=== PATIENT | male | born 1985 | race Caucasian/White ===

== ENCOUNTER 2020-07-14 21:20 | Day surgery (SDC) | payer BC ==
--- NOTE | 2020-07-14 21:45 | ED Physician Documentation ---
PD HPI ABD PAIN - Stated complaint Stated Complaint: RT FLANK PX - Chief complaint Chief Complaint: Back Pain - History obtained from History obtained from: Patient - History of Present Illness Timing - onset: How many hours ago (3-4), Today Timing - duration: Hours Timing - details: Gradual onset Pain level now: 6 Quality: Pain Location: Other (right flank and right LQ) Radiation: Right flank Improved by: Laying still Worsened by: Breathing, Palpation Associated symptoms: Loss of appetite. No: Fever, Nausea, Vomiting Similar symptoms before: Has not had sx before Recently seen: Not recently seen Review of Systems Constitutional: reports: Reviewed and negative Eyes: reports: Reviewed and negative Ears: reports: Reviewed and negative Nose: reports: Reviewed and negative Throat: reports: Reviewed and negative Cardiac: reports: Reviewed and negative Respiratory: reports: Reviewed and negative GI: reports: Abdominal Pain. denies: Abdominal Swelling, Nausea, Vomiting, Constipation, Diarrhea : denies: Dysuria, Frequency, Hematuria Skin: reports: Reviewed and negative PD PAST MEDICAL HISTORY - Past Medical History Past Medical History: No - Past Surgical History Past Surgical History: No - Allergies Allergies/Adverse Reactions: Allergies Allergy/AdvReac Type Severity Reaction Status Date / Time No Known Drug Allergies Allergy Verified 07/14/20 21:32 - Social History Does the pt drink ETOH?: No PD ED PE NORMAL - Vitals Vital signs reviewed: Yes - General General: Alert and oriented X 3, No acute distress, Well developed/nourished - Neck Neck: Supple, no meningeal sign - Cardiac Cardiac: RRR, No murmur - Respiratory Respiratory: No respiratory distress, Clear bilaterally - Abdomen Abdomen: Soft, Non distended - Back Back: No CVA TTP - Derm Derm: Normal color, Warm and dry, No rash PD ED PE EXPANDED - Abdomen Abdomen: Tender to palpation, Guarding, RLQ. No: Rebound Results - Vitals Vitals: Vital Signs - 24 hr 07/14/20 07/15/20 07/15/20 21:30 00:26 00:50 Temperature 37.0 C Heart Rate 86 68 129 H Heart Rate [ Brachial] Respiratory 16 15 38 H Rate Blood Pressure 135/85 H 131/74 H Blood Pressure [Left Brachial artery] O2 Saturation 95 99 98 07/15/20 07/15/20 07/15/20 01:08 01:25 05:00 Temperature 36.7 C 36.4 C L Heart Rate 71 Heart Rate [ 63 71 Brachial] Respiratory 16 18 18 Rate Blood Pressure 122/76 Blood Pressure 135/73 H 130/99 H [Left Brachial artery] O2 Saturation 98 100 98 07/15/20 07/15/20 07/15/20 07:30 07:35 08:13 Temperature 36.5 C 36.3 C L 36.3 C L Heart Rate 76 71 Heart Rate [ 67 Brachial] Respiratory 18 20 20 Rate Blood Pressure 122/76 Blood Pressure 119/66 [Left Brachial artery] O2 Saturation 97 99 99 07/15/20 07/15/20 07/15/20 09:37 09:42 09:47 Temperature 36.3 C L 36.3 C L 36.4 C L Heart Rate 80 84 78 Heart Rate [ Brachial] Respiratory 17 12 17 Rate Blood Pressure 117/92 H 132/88 H 139/83 H Blood Pressure [Left Brachial artery] O2 Saturation 97 99 98 07/15/20 07/15/20 07/15/20 09:52 10:14 10:20 Temperature 36.4 C L 36.1 C L 36.1 C L Heart Rate 76 84 77 Heart Rate [ Brachial] Respiratory 18 20 11 L Rate Blood Pressure 137/87 H 147/82 H 127/89 H Blood Pressure [Left Brachial artery] O2 Saturation 98 97 95 07/15/20 07/15/20 07/15/20 10:35 10:46 11:04 Temperature 36.2 C L 36.5 C 36.4 C L Heart Rate 79 76 82 Heart Rate [ Brachial] Respiratory 13 11 L 10 L Rate Blood Pressure 137/78 H 149/82 H 136/96 H Blood Pressure [Left Brachial artery] O2 Saturation 97 96 99 07/15/20 11:09 Temperature 36.4 C L Heart Rate 75 Heart Rate [ Brachial] Respiratory 12 Rate Blood Pressure 120/87 H Blood Pressure [Left Brachial artery] O2 Saturation 97 Oxygen O2 Source Room air - Labs Labs: Laboratory Tests 07/14/20 07/14/20 07/14/20 21:30 22:07 22:07 WBC 12.4 H RBC 5.49 Hgb 14.5 Hct 43.0 MCV 78.3 L MCH 26.4 L MCHC 33.7 RDW 12.5 Plt Count 302 MPV 10.2 Neut # (Auto) 7.1 H Lymph # (Auto) 4.1 H [place] # (Auto) 0.8 Eos # (Auto) 0.2 Baso # (Auto) 0.1 Absolute Nucleated RBC 0.00 Nucleated RBC % 0.0 Sodium 139 Potassium 3.8 Chloride 101 Carbon Dioxide 29 Anion Gap 9.0 BUN 16 Creatinine 0.9 Estimated GFR (MDRD) 95 Glucose 105 H Calcium 9.5 Total Bilirubin 0.7 AST 34 ALT 70 H Alkaline Phosphatase 51 Total Protein 8.0 Albumin 4.6 Globulin 3.4 Albumin/Globulin Ratio 1.4 Lipase 56 H Urine Color YELLOW Urine Clarity CLEAR Urine pH 6.5 Ur Specific [place] 1.025 Urine Protein NEGATIVE Urine Glucose (UA) NEGATIVE Urine Ketones NEGATIVE Urine Occult Blood NEGATIVE Urine Nitrite NEGATIVE Urine Bilirubin NEGATIVE Urine Urobilinogen 1 (NORMAL) Ur Leukocyte Esterase NEGATIVE Ur Microscopic Review NOT INDICATED Urine Culture Comments NOT INDICATED Nasal Adenovirus (PCR) Nasal B. parapertussis DNA (PCR) Nasal Coronavir 229E PCR Nasal Coronavir HKU1 PCR Nasal Coronavir NL63 PCR Nasal Coronavir OC43 PCR Nasal Enterovir/Rhinovir PCR Nasal Influenza B PCR Nasal Influenza A PCR Nasal Parainfluen 1 PCR Nasal Parainfluen 2 PCR Nasal Parainfluen 3 PCR Nasal Parainfluen 4 PCR Nasal RSV (PCR) Nasal B.pertussis DNA PCR Nasal C.pneumoniae (PCR) Robin Human Metapneumo PCR Nasal M.pneumoniae (PCR) Nasal SARS-CoV-2 (PCR) 07/15/20 07/15/20 01:00 07:30 WBC RBC Hgb Hct MCV MCH MCHC RDW Plt Count MPV Neut # (Auto) Lymph # (Auto) [place] # (Auto) Eos # (Auto) Baso # (Auto) Absolute Nucleated RBC Nucleated RBC % Sodium 136 Potassium 3.7 Chloride 103 Carbon Dioxide 27 Anion Gap 6.0 BUN 15 Creatinine 0.9 Estimated GFR (MDRD) 95 Glucose 102 H Calcium 8.9 Total Bilirubin 0.7 AST 31 ALT 62 H Alkaline Phosphatase 47 Total Protein 7.8 Albumin 4.3 Globulin 3.5 Albumin/Globulin Ratio 1.2 Lipase Urine Color Urine Clarity Urine pH Ur Specific [place] Urine Protein Urine Glucose (UA) Urine Ketones Urine Occult Blood Urine Nitrite Urine Bilirubin Urine Urobilinogen Ur Leukocyte Esterase Ur Microscopic Review Urine Culture Comments Nasal Adenovirus (PCR) NOT DETECTED Nasal B. parapertussis DNA (PCR) NOT DETECTED Nasal Coronavir 229E PCR NOT DETECTED Nasal Coronavir HKU1 PCR NOT DETECTED Nasal Coronavir NL63 PCR NOT DETECTED Nasal Coronavir OC43 PCR NOT DETECTED Nasal Enterovir/Rhinovir PCR NOT DETECTED Nasal Influenza B PCR NOT DETECTED Nasal Influenza A PCR NOT DETECTED Nasal Parainfluen 1 PCR NOT DETECTED Nasal Parainfluen 2 PCR NOT DETECTED Nasal Parainfluen 3 PCR NOT DETECTED Nasal Parainfluen 4 PCR NOT DETECTED Nasal RSV (PCR) NOT DETECTED Nasal B.pertussis DNA PCR NOT DETECTED Nasal C.pneumoniae (PCR) NOT DETECTED Robin Human Metapneumo PCR NOT DETECTED Nasal M.pneumoniae (PCR) NOT DETECTED Nasal SARS-CoV-2 (PCR) NOT DETECTED - Rads (name of study) CT A/P with IV contrast Radiology: Prelim report reviewed, See rad report PD MEDICAL DECISION MAKING - ED course Complexity details: reviewed results, re-evaluated patient, considered differential, d/w patient ED course: appendicitis on CT with H+P s/o same. D/w Dr. Cramer, accepts admit to surgical service for appendectomy in AM. Zosyn given IV as requested by Dr. Cramer. - Consults Consults: Consulted (name) (COILN), Discussed case with (Colin), Request hr consultant admit patient Departure - Departure Disposition: ED Transfer to [facility] Clinical Impression: Appendicitis Qualifiers: Appendicitis type: acute appendicitis Acute appendicitis type: with localized peritonitis Appendicitis gangrene presence: without gangrene Appendicitis perforation presence: without perforation Appendicitis abscess presence: without abscess Qualified Code(s): K35.30 - Acute appendicitis with localized peritonitis, without perforation or gangrene Condition: Stable Discharge Date/Time: 07/15/20 01:25
[2020-07-14 21:50] LABS: BILIRUBIN,URINE NEGATIVE (NEGATIVE); GLUCOSE, URINE (UA) NEGATIVE (NEGATIVE); KETONES,URINE (UA) NEGATIVE (NEGATIVE); LEUKOCYTE ESTERASE, URINE NEGATIVE (NEGATIVE); NITRITE,URINE NEGATIVE (NEGATIVE); OCCULT BLOOD,URINE NEGATIVE (NEGATIVE); PH,URINE 6.5 PH (5.0-7.5); PROTEIN,URINE NEGATIVE (NEGATIVE); UROBILINOGEN,URINE 1 (NORMAL) E.U./dL (NORMAL)
[2020-07-14 21:51] LABS: CLARITY,URINE CLEAR (CLEAR)
[2020-07-14] MEDS ORDERED: IOVERSOL 320 100 ML VIAL IVP ONE ×2 (22:04→22:42)
[2020-07-14 22:13] LABS: BASOPHILS # (AUTO) 0.1 10^3/uL (0.0-0.1); BASOPHILS % (AUTO) 0.5 %; EOSINOPHILS # (AUTO) 0.2 10^3/uL (0.0-0.7); EOSINOPHILS % (AUTO) 1.3 %; HGB - HEMOGLOBIN 14.5 g/dL (14.0-18.0); LYMPHOCYTES # (AUTO) 4.1 10^3/uL (1.5-3.5); LYMPHOCYTES % (AUTO) 32.9 %; MEAN CORPUSCULAR HEMOGLOBIN 26.4 pg (27.0-31.0); MEAN CORPUSCULAR HGB CONC 33.7 g/dL (32.0-36.0); MEAN CORPUSCULAR VOLUME 78.3 fL (80.0-94.0); MEAN PLATELET VOLUME 10.2 fL (7.4-11.4); MONOCYTES # (AUTO) 0.8 10^3/uL (0.0-1.0); MONOCYTES % (AUTO) 6.7 %; NEUTROPHILS # (AUTO) 7.1 10^3/uL (1.5-6.6); NEUTROPHILS % (AUTO) 57.5 %; PLT - PLATELET COUNT 302 10^3/uL (130-450); RED BLOOD COUNT 5.49 10^6/uL (4.70-6.10); RED CELL DISTRIBUTION WIDTH 12.5 % (12.0-15.0); WHITE BLOOD COUNT 12.4 x10^3/uL (4.8-10.8)
[2020-07-14 22:25] LABS: ALBUMIN 4.6 g/dL (3.2-5.5); ALBUMIN/GLOBULIN RATIO 1.4 (1.0-2.2); BILIRUBIN,TOTAL 0.7 mg/dL (0.2-1.0); CALCIUM 9.5 mg/dL (8.5-10.3); CREATININE 0.9 mg/dL (0.6-1.2); POTASSIUM 3.8 mmol/L (3.5-5.0)
[2020-07-14] MEDS ORDERED: SODIUM CHLORIDE 0.9% 1,000 ML IV STA (23:59)
[2020-07-14] MEDS ORDERED: PIPERACILLIN/TAZOBACTAM 3.375 GM in SODIUM CHLORIDE 0.9% MINIBAG 100 ML IV STA (23:59)
[2020-07-15] MEDS ORDERED: ONDANSETRON 4 MG/2 ML VIAL IVP PRN ×2 (00:51→08:24)
[2020-07-15] MEDS ORDERED: ACETAMINOPHEN 1,000 MG/100 ML 100 ML IV SCH ×2 (01:00→08:00)
[2020-07-15] MEDS: D5NS W/20 MEQ KCL 1,000 ML IV SCH ×2 (01:59→10:24)
[2020-07-15] MEDS: HEPARIN 5,000 UNIT/ML VIAL SUBQ SCH ×2 (01:59→07:41)
[2020-07-15 02:07] LABS: B. PARAPERTUSSIS- RESP PCR PAN NOT DETECTED; B. PERTUSSIS- RESP PCR PANEL NOT DETECTED; C. PNEUMONIAE- RESP PCR PANEL NOT DETECTED; CORONAVIRUS 229E-RESP PCR NOT DETECTED; CORONAVIRUS HKU1-RESP PCR NOT DETECTED; CORONAVIRUS NL63-RESP PCR NOT DETECTED; CORONAVIRUS OC43-RESP PCR NOT DETECTED; HUMAN METAPNEUMOVIRUS NOT DETECTED; INFLUENZA A- RESP PCR PANEL NOT DETECTED; INFLUENZA B - RESP PCR PANEL NOT DETECTED; M. PNEUMONIAE- RESP PCR PANEL NOT DETECTED; PARAINFLUENZA VIRUS 1 NOT DETECTED; PARAINFLUENZA VIRUS 2 NOT DETECTED; PARAINFLUENZA VIRUS 3 NOT DETECTED; PARAINFLUENZA VIRUS 4 NOT DETECTED; RHINOVIRUS/ENTEROVIRUS NOT DETECTED; RSV- RESP PCR PANEL NOT DETECTED; SARS-CoV-2 -RESP PCR PANEL NOT DETECTED
[2020-07-15] MEDS ORDERED: methocarbamoL 500 MG TABLET PO SCH (06:00)
[2020-07-15] MEDS ORDERED: METOCLOPRAMIDE 10 MG/2 ML VIAL IVP SCH (06:00)
[2020-07-15] MEDS ORDERED: PIPERACILLIN/TAZOBACTAM 3.375 GM in SODIUM CHLORIDE 0.9% MINIBAG 100 ML IV SCH (06:00)
[2020-07-15] MEDS ORDERED: LIDOCAINE-MPF 2% 5 ML VIAL ONE (07:00)
[2020-07-15] MEDS ORDERED: fentaNYL 100 MCG/2 ML VIAL ONE (07:00)
[2020-07-15] MEDS ORDERED: PROPOFOL 200 MG/20 ML VIAL IVP ONE ×2 (07:00→09:20)
[2020-07-15] MEDS ORDERED: MIDAZOLAM 2 MG/2 ML VIAL ONE (07:00)
[2020-07-15] MEDS ORDERED: DEXAMETHASONE 4 MG/ML VIAL ONE (07:01)
[2020-07-15] MEDS ORDERED: ONDANSETRON 4 MG/2 ML VIAL ONE (07:01)
[2020-07-15] MEDS ORDERED: ROCURONIUM 50 MG/5 ML VIAL ONE (07:01)
[2020-07-15] MEDS ORDERED: LIDOCAINE 1% 50 ML MDV ONE (07:07)
[2020-07-15] MEDS ORDERED: BUPIVACAINE 0.5%-EPI 1:200000 PF 30 ML VIAL ONE (07:07)
[2020-07-15] MEDS ORDERED: SEVOFLURANE 250 ML LIQUID INH ONE (07:07)
[2020-07-15 08:05] LABS: ALBUMIN 4.3 g/dL (3.2-5.5); ALBUMIN/GLOBULIN RATIO 1.2 (1.0-2.2); BILIRUBIN,TOTAL 0.7 mg/dL (0.2-1.0); CALCIUM 8.9 mg/dL (8.5-10.3); CREATININE 0.9 mg/dL (0.6-1.2); POTASSIUM 3.7 mmol/L (3.5-5.0); TOTAL PROTEIN 7.8 g/dL (6.7-8.2)
--- NOTE | 2020-07-15 08:10 | SURGERY HX AND PHYSICAL(T) ---
Surgical History & Physical - Chief Complaint/HPI Chief Complaint: Abdominal pain/appendicitis History of Present Illness: 34-year-old male presenting with 1 day of abdominal pain. Work-up included CT imaging as well as lab evaluation. Patient notable for a leukocytosis, on CT imaging positive appendicitis with inflammatory changes. Patient with no significant past medical history. Admitted in anticipation of operative intervention after resuscitation and IV antibiotics; opted to proceed to the operating room urgently for laparoscopic intervention. - PMH/PSH/Social Hx Neurological History: None Cardiovascular: None Respiratory: Other Skin: None Endocrine/Autoimmune: None Urinary: None Musculoskeletal: None Blood Disorders: None PMH Other: SEASONAL ALLERGIES Smoking Status: Never smoker Does the pt drink ETOH?: Yes Frequency: Occasional Does the pt have substance abuse?: No - Home Meds and Allergies Allergies/Adverse Reactions: Allergies Allergy/AdvReac Type Severity Reaction Status Date / Time No Known Drug Allergies Allergy Verified 07/14/20 21:32 - Review of Systems Constitutional: Fatigue, Fever Gastrointestinal: Abdominal pain - Vital Signs Heart Rate: 71 Blood Pressure: 122/76 Temperature: 36.3 C Respiratory Rate: 20 O2 Saturation: 99 Weight (kg): 104.5 kg Height: 1.75 m - Physical Exam Comments/Other: General Appearance: positive: No acute distress Eyes Bilateral: positive: Normal inspection ENT: positive: ENT inspection nml Neck: positive: Nml inspection Respiratory: positive: Chest non-tender, No respiratory distress, Breath sounds nml. negative: Wheezes, Rales, Rhonchi Cardiovascular: positive: Regular rate & rhythm Abdomen: positive: No distention, Other. negative: Guarding, Rebound; Positive right lower quadrant tenderness to palpation Extremities: positive: Non-tender, Full ROM, Nml appearance Neurologic/Psychiatric: positive: Oriented x3, CN's nml (2-12) - Patient Review Patient Review: Problems were reviewed with the patient during this visit. Medications were reviewed with the patient during this visit. Allergies were reviewed this patient during this visit. Pertinent Tests Reviewed: All pertitent test for this patient were reviewed. - Assessment & Plan Assessment and Plan: 34-year-old male presenting with acute appendicitis with no comorbid states. Leukocytosis to approximately 12, CT with uncomplicated nonperforated appendicitis. Plan going forward is as follows: 1. Bowel rest, IV fluid resuscitation, IV antibiotics. 2. Preoperative chest x-ray, preoperative EKG, labs evaluated. 3. Planned diagnostic laparoscopy, laparoscopic appendectomy, other indicated procedures. Patient counseled of the risk associated with operative intervention including but not limited to conversion to open procedure, injury to local structures, and anesthesia risks of heart attack, stroke, . 4. Postoperative care under observation status with continued IV antibiotics.
--- NOTE | 2020-07-15 08:14 | CT Report ---
PROCEDURE: Abdomen/Pelvis W INDICATIONS: RLQ abd. pain CONTRAST: IV CONTRAST: Optiray 320 ml: 100 PO CONTRAST: *NO PO CONTRAST TECHNIQUE: After the administration of intravenous contrast, 5 mm thick sections acquired from the diaphragms to the symphysis. 5 mm thick coronal and sagittal reformats were acquired. For radiation dose reducti on, the following was used: automated exposure control, adjustment of mA and/or kV according to rima ent size. COMPARISON: CXR 07/15/2020. FINDINGS: Image quality: Excellent. ABDOMEN: Lung bases: Heart size is normal. Right lower lobe groundglass pulmonary nodule measuring 0.7 cm, (4/ 10). Solid organs: Liver is normal in size. There is diffuse low-attenuation suggesting hepatic steatosis . No focal lesion. Gallbladder is unremarkable. Biliary system is non dilated. Pancreas enhances no rmally. No splenomegaly. No adrenal nodules. Kidneys demonstrate normal size, without hydronephrosis . Right kidney superior pole exophytic cyst measuring 1.1 cm, (6/46), 36 Hounsfield units. Peritoneum and bowel: The appendix is mildly dilated measuring 0.9 cm in diameter, (6/35). There is m ild periappendiceal stranding. No periappendiceal fluid collection. No appendicolith is seen. No small bowel obstruction. No significant diverticulosis. No pneumoperitoneum. No ascites. Nodes and vessels: No retroperitoneal or mesenteric adenopathy by size criteria. Small lymph nodes i n the right lower quadrant. Aorta and inferior vena cava are normal in size. Miscellaneous: Tiny fat-containing periumbilical hernia. PELVIS: Genitourinary: Bladder is within normal limits. No free fluid. Miscellaneous: No definite inguinal hernias or adenopathy. Bones: No suspicious bony lesions. Multilevel DDD, early onset. No vertebral body compression fract ures. IMPRESSION: 1. Acute appendicitis, mild severity. No abscess or pneumoperitoneum. 2. Suspect hepatic steatosis. 3. Incidental right kidney mildly complex cyst measuring 1.1 cm. -This can be further characterization with ultrasound or MRI or CT. 4. Incidental right lower lobe groundglass pulmonary nodule measuring 0.7 cm. -This can be further followed with low-dose CT chest in 6-12 months. Minor discrepancy with the preliminary interpretation. Small pulmonary nodule is identified. Discrepancy conveyed to Nikolas the patient's nurse at time of dictation. Reviewed by: Camron Brand MD on 07/15/2020 8:12 AM PDT Approved by: Camron Brand MD on 07/15/2020 8:12 AM PDT Station ID: [id number]
[2020-07-15] MEDS ORDERED: HYDROmorphone 0.5 MG/0.5 ML SYRINGE IVP PRN ×2 (08:24→09:37)
[2020-07-15] MEDS ORDERED: fentaNYL 100 MCG/2 ML VIAL IVP PRN (08:24)
[2020-07-15] MEDS ORDERED: ePHEDrine 50 MG/ML VIAL IVP PRN (08:24)
[2020-07-15] MEDS ORDERED: METOCLOPRAMIDE 10 MG/2 ML VIAL IVP PRN (08:24)
[2020-07-15] MEDS ORDERED: MORPHINE 2 MG/ML CARPUJECT IVP PRN (08:24)
[2020-07-15] MEDS ORDERED: NALOXONE 0.4 MG/ML VIAL IVP PRN (08:24)
[2020-07-15] MEDS ORDERED: ATROPINE ABBOJECT 1 MG/10 ML SYRINGE IVP PRN (08:24)
--- NOTE | 2020-07-15 08:24 | ANESTHESIA ---
Pre-Anesthesia VS, & Labs - Diagnosis appendicitis - Procedure laparoscopic appendectomy Vital Signs: Temp Pulse Resp BP Pulse Ox 36.3 C L 71 20 122/76 99 07/15/20 08:13 07/15/20 08:13 07/15/20 08:13 07/15/20 08:13 07/15/20 08:13 Height: 5 ft 9 in Weight (kg): 104.5 kg Body Mass Index: 34.0 BMI Classification: Obese - NPO >8 hours - Lab Results Current Lab Results: Laboratory Tests 07/15/20 07:30: Sodium 136, Potassium 3.7, Chloride 103, Carbon Dioxide 27, Anion Gap 6.0, BUN 15, Creatinine 0.9, Estimated GFR (MDRD) 95, Glucose 102 H, Calcium 8.9, Total Bilirubin 0.7, AST 31, ALT 62 H, Alkaline Phosphatase 47, Total Protein 7.8, Albumin 4.3, Globulin 3.5, Albumin/Globulin Ratio 1.2 07/14/20 22:07: Sodium 139, Potassium 3.8, Chloride 101, Carbon Dioxide 29, Anion Gap 9.0, BUN 16, Creatinine 0.9, Estimated GFR (MDRD) 95, Glucose 105 H, Calcium 9.5, Total Bilirubin 0.7, AST 34, ALT 70 H, Alkaline Phosphatase 51, Total Protein 8.0, Albumin 4.6, Globulin 3.4, Albumin/Globulin Ratio 1.4, Lipase 56 H 07/14/20 22:07: WBC 12.4 H, RBC 5.49, Hgb 14.5, Hct 43.0, MCV 78.3 L, MCH 26.4 L , MCHC 33.7, RDW 12.5, Plt Count 302, MPV 10.2, Neut # (Auto) 7.1 H, Lymph # (Auto) 4.1 H, [place] # (Auto) 0.8, Eos # (Auto) 0.2, Baso # (Auto) 0.1, Absolute Nucleated RBC 0.00, Nucleated RBC % 0.0 Fish Bones: 07/14/20 22:07 07/15/20 07:30 Home Medications and Allergies Active Medications Heparin Sodium (Porcine) (Heparin 5,000 Unit/Ml Vial) 5,000 unit SUBQ BID SOFIA Last Admin: 07/15/20 07:41 Dose: Not Given Documented by: Potassium Chloride/Dextrose/Sod Cl (D5ns W/20 Meq Kcl) 1,000 mls @ 125 mls/hr IV .Q8H [facility] Last Admin: 07/15/20 01:59 Dose: 125 mls/hr Documented by: Piperacillin Sod/Tazobactam (Sod 3.375 gm/ Sodium Chloride) 100 mls @ 200 mls/hr IV Q6H [facility] Last Infusion: 07/15/20 05:55 Dose: Infused Documented by: Acetaminophen (Ofirmev) 100 mls @ 400 mls/hr IV Q6H [facility] Methocarbamol (Methocarbamol 500 Mg Tablet) 500 mg PO Q6HR [facility] Last Admin: 07/15/20 05:24 Dose: 500 mg Documented by: Metoclopramide HCl (Metoclopramide 10 Mg/2 Ml Vial) 10 mg IVP Q6HR [facility] Last Admin: 07/15/20 05:24 Dose: 10 mg Documented by: Ondansetron HCl (Ondansetron 4 Mg/2 Ml Vial) 4 mg IVP Q6HR PRN PRN Reason: Nausea / Vomiting Sodium Chloride (Sodium Chloride Flush 0.9% 10 Ml Syringe) 10 ml IVP 0100,0900,1700 [facility] Last Admin: 07/15/20 05:33 Dose: 10 ml Documented by: Allergies/Adverse Reactions: Allergies Allergy/AdvReac Type Severity Reaction Status Date / Time No Known Drug Allergies Allergy Verified 07/14/20 21:32 Anes History & Medical History - Anesthetic History Anesthesia Complications: reports: No previous complications - Medical History Cardiovascular: reports: None Pulmonary: reports: Other Gastrointestinal: reports: None Urinary: reports: None Neuro: reports: None Musculoskeletal: reports: None Endocrine/Autoimmune: reports: None Blood Disorders: reports: None Skin: reports: None Smoking Status: Never smoker Other Past Medical History: SEASONAL ALLERGIES Exam General: Alert Dental: WNL Neck Mobility: Normal Mallampati classification: III Thyromental Distance: greater than 6 cm Respiratory: Lungs clear Cardiovascular: Regular rate Plan Anesthesia Type: General Consent for Procedure(s) Verified and Reviewed: Yes Code Status: Attempt Resuscitation ASA classification: 2-Mild systemic disease Is this case an emergency?: Yes
[2020-07-15] MEDS ORDERED: ACETAMINOPHEN 1,000 MG/100 ML 100 ML IV ONE (08:35)
--- NOTE | 2020-07-15 08:46 | XRAY Report ---
PROCEDURE: Chest 1 View X-Ray INDICATIONS: Preoperative clearance TECHNIQUE: One view of the chest was acquired. COMPARISON: None FINDINGS: Surgical changes and devices: None. Lungs and pleura: No pleural effusions or pneumothorax. Lungs are clear. Mediastinum: Mediastinal contours appear normal. Heart size is normal. Bones and chest wall: No suspicious bony lesions. Overlying soft tissues appear unremarkable. IMPRESSION: No acute cardiopulmonary process demonstrated radiographically. Reviewed by: Jose Vick MD on 07/15/2020 8:44 AM PDT Approved by: Jose Vick MD on 07/15/2020 8:44 AM PDT Station ID: [id number]
[2020-07-15] MEDS ORDERED: SODIUM CHLORIDE FLUSH 0.9% 10 ML SYRINGE IVP SCH (09:00)
[2020-07-15] MEDS ORDERED: LACTATED RINGERS 1,000 ML IV SCH (09:00)
[2020-07-15] MEDS ORDERED: LIDOCAINE 1% 50 ML MDV SUBQ ONE (09:07)
[2020-07-15] MEDS ORDERED: BUPIVACAINE 0.5%-EPI 1:200000 PF 30 ML VIAL SUBQ ONE (09:08)
[2020-07-15] MEDS ORDERED: SUGAMMADEX 200 MG/2 ML VIAL IVP ONE (09:09)
[2020-07-15] MEDS ORDERED: KETOROLAC 30 MG/ML VIAL ONE (09:28)
[2020-07-15] MEDS ORDERED: oxyCODONE 5 MG TABLET PO PRN (09:37)
--- NOTE | 2020-07-15 09:43 | OPERATIVE REPORT ---
Operative Report - General Procedure Date: 07/15/20 Planned Procedure: 1. Diagnostic laparoscopy 2. Laparoscopic appendectomy 3. Other indicated procedures Pre-Op Diagnosis: Appendicitis; abdominal pain; umbilical hernia Procedure Performed: 1. Diagnostic laparoscopy 2. Laparoscopic adhesiolysis, extensive 3. Appendectomy with partial cecectomy 4. Abdominal washout 5. Umbilical hernia repair, primary Post Op Diagnosis: same; nonperforated, nonsuppurative appendicitis; adhesions - Procedure Note Primary Surgeon: Bela Secondary Surgeon: Soco Anesthesia Provider: Juan Anesthesia Technique: General ET tube, Local Pathology: Appendix with portion of cecum Estimated Blood Loss (mL): 20 Indications: See EMR Findings: 1. Nonperforated nonsuppurative appendicitis in the right upper quadrant 2. Dense adhesions to the right lower quadrant 3. Umbilical hernia closed after desufflation and specimen removal Complications: None - Other Other Information/Narrative: OPERATIVE PROCEDURE: The patient was taken to the operating room, placed supine on the operating table. The patent was already obtained tor informed consent which was documented in the patients permanent medical record The patient was induced for general endotracheal anesthesia. The patient was positioned, off loaded and padded at all pressure points. The patient was placed for a Amos catheter and tucked for the left arm. The patient was prepped and draped in the usual sterile fashion. The patient was called for a time out which was agreed to all in the room. Open Manriquez technique was performed through umbilicus and umbilical trocar was placed. This was achieved with a circumlinear louie-umbilical incision. This is taken through the subcutaneous fat, the umbilical stalk was dissected off and obvious hernia defect was appreciated. This was done without any injury to the umbilical skin. That ho-chunk defect was enlarged and accommodated Manriquez trocar without any complication. Insufflation was commenced which the patient tolerated to 15 mmHg well with no complication. Additional trocars were placed suprapubic and left lower quadrant under direct laparoscopic vision. At this time the patient was placed in Trendelenburg position with right side up and we proceeded to isolate the cecum which was densely adhered to the sidewall. Dense right lower quadrant adhesions of the terminal ileum starting from the pelvic inlet all the way through to the right upper quadrant where the cecum was localized with a dilated appendix. In order to access the cecum and resect the appendix safely these adhesions need to be addressed. Laparoscopic LigaSure was used in order to achieve this. Laparoscopic electrocautery was also employed. The appendix was continued to be mobilized and thereafter we achieved mobilization medially taking care to note the location of the ureter which was protected and identified throughout the entirety at this case especially given the extent of the patients inflammatory changes. Ultimately the cecum was isolated free, and the appendix was thereafter completely mobilized off the abdominal and pelvic sidewall. At this time there were dense adhesions noted of the appendix to the ascending colon and cecum and this required careful dissection as well, both blunt and also using the suction audio/video technician and laparoscopic electrocautery. At this time a [place]-tipped LigaSure was used to dissect the cecal-appendiceal junction and thereafter using a ENDOGIA linear cutting stapler, the appendix was divided at the base to include portion at the cecum. The ileocecal valve was identified and protected throughout with no involvement. At this time, we continued to mobilize the appendix off the ascending colon and caecum making sure there was no inadvertent injury to the ascending colon and the cecum which was again densely adhered to the appendix. Ultimately the mesoappendix was divided using the laparoscopic LigaSure [place] tip. Ultimately we proceeded to place the appendix into an Endo Catch bag for control of any inadvertent spillage. The appendiceal staple line and mesoappendix staple line and ligature were evaluated and hemostatic. At this time, we extensively irrigated the abdomen with greater than 2 liters of sterile saline and aspirated clear. At this time all trochars, secondary, were removed under direct laparoscopic visualization with no consequent bleeding. We removed the Manriquez trocar, passed the specimen off for permanent pathology. We closed the umbilical defect with several [id number]'s of 0 Vicryl, and performed umbilicoplasty simultaneous. A mixture of quarter percent Marcaine and 1% lidocaine were instilled within the wounds for a total of 10 cc. All skin and subcutaneous tissue was reapproximated with a skin crystal. The wounds were dressed with Telfa and Tegaderms. I was present for the entirety of this operative intervention patient tolerated procedure well which is no complication. All counts were sponges needles and instruments were correct at the conclusion of this operative case.
[2020-07-15] MEDS ORDERED: LACTATED RINGERS 1,000 ML IV ONE ×2 (09:46→10:44)
[2020-07-15] MEDS ORDERED: HYDROmorphone 0.5 MG/0.5 ML SYRINGE ONE ×2 (10:10→10:17)
[2020-07-15] MEDS ORDERED: oxyCODONE 5 MG TABLET ONE (10:58)
[2020-07-15 11:09] VITALS: BP 120/87
--- NOTE | 2020-07-15 12:44 | ANESTHESIA POST OP EVALUATION ---
Anesthesia Post Eval - Post Anesthesia Eval Vitals: Last Vital Signs Temp 36.4 C L 07/15/20 11:09 Pulse 75 07/15/20 11:09 Resp 12 07/15/20 11:09 BP 120/87 H 07/15/20 11:09 Pulse Ox 97 07/15/20 11:09 CV Function Including HR & BP: Stable Pain Control: Satisfactory Nausea & Vomiting: Negative Mental Status: Baseline Respiratory Status: Airway Patent Hydration Status: Satisfactory Anesthesia Complications: None
== END 2020-07-15 11:23 | disposition home or self-care (01) ==
LOC: SUPCPDRO 21:20 → ED 21:20 → SDS 07-15 00:48 → MS2 07-15 00:48 → SDS 07-15 11:23
PROVIDERS: ATTEND Surgery
PROC: 0DTJ4ZZ Resection of Appendix, Percutaneous Endoscopic Approach (ICD-10-PCS; principal; 2020-07-15 07:30)
DX: K35.30 Acute appendicitis with localized peritonitis, without perforation or gangrene (principal); Z20.822 Contact with and (suspected) exposure to COVID-19; K42.9 Umbilical hernia without obstruction or gangrene; E66.9 Obesity, unspecified; Z68.34 Body mass index [BMI] 34.0-34.9, adult
CPT/HCPCS: 0202U; 36415; 44970; 71045; 74177; 80048; 80053; 81003; 83690; 85025; 93005; 96365; 99284; 99285; A9270; J0131; J1170; J2765; J3490; J7120; Q9967; 81001; 87086

== ENCOUNTER 2020-07-29 10:22 | Emergency (ER) | payer BC ==
[2020-07-29 10:33] VITALS: BP 128/69
--- NOTE | 2020-07-29 10:43 | ED Physician Documentation ---
History of Present Illness - Stated complaint Stated Complaint: STAPLE REMOVAL - Chief complaint Chief Complaint: General - History obtained from History obtained from: Patient - Additonal information Additional information: Patient comes to the emergency department with chief complaint of abdominal incision staple removal status post appendectomy 2 weeks ago. Patient states that his surgeon did not give him a follow-up appointment for wound check or reevaluation. Patient states has been doing very well since his surgery. No problems with his wounds. He states his abdominal pain is almost completely gone. No fevers or chills. No nausea, vomiting, or bowel habit change. No other complaints at this time. Review of Systems Ten Systems: 10 systems reviewed and negative Constitutional: reports: Reviewed and negative Eyes: reports: Reviewed and negative Ears: reports: Reviewed and negative Nose: reports: Reviewed and negative Throat: reports: Reviewed and negative Cardiac: reports: Reviewed and negative Respiratory: reports: Reviewed and negative GI: reports: Reviewed and negative : reports: Reviewed and negative Skin: reports: Other (Incisions) Musculoskeletal: reports: Reviewed and negative Neurologic: reports: Reviewed and negative Psychiatric: reports: Reviewed and negative Endocrine: reports: Reviewed and negative Immunocompromised: reports: Reviewed and negative PD PAST MEDICAL HISTORY - Past Medical History Past Medical History: Yes Cardiovascular: None Respiratory: Other Neuro: None Endocrine/Autoimmune: None GI: None : None HEENT: None Psych: None Musculoskeletal: None Derm: None - Past Surgical History Past Surgical History: No - Present Medications Home Medications: Ambulatory Orders Medication Instructions Recorded Confirmed oxyCODONE [Roxicodone] 5 mg PO Q6H PRN #24 tablet 07/16/20 - Allergies Allergies/Adverse Reactions: Allergies Allergy/AdvReac Type Severity Reaction Status Date / Time No Known Drug Allergies Allergy Verified 07/29/20 10:33 - Social History Does the pt smoke?: No Smoking Status: Never smoker Does the pt drink ETOH?: No Does the pt have substance abuse?: No - Immunizations Immunizations are current?: No - POLST Patient has POLST: No PD ED PE NORMAL - Vitals Vital signs reviewed: Yes - General General: Alert and oriented X 3, No acute distress, Well developed/nourished - HEENT HEENT: Atraumatic, PERRL, EOMI, Moist mucous membranes - Neck Neck: Supple, no meningeal sign - Respiratory Respiratory: No respiratory distress - Abdomen Abdomen: Soft, Non tender, Non distended, Other (3 abdominal incision wounds well-healed, placed consistent with laparoscopic appendectomy.) - Derm Derm: Normal color, Warm and dry, No rash, Other (Abdominal incisions with crystal in place, as noted above. No induration, erythema, or edema. No wound dehiscence or drainage.) - Extremities Extremities: No deformity - Neuro Neuro: Alert and oriented X 3 - Psych Psych: Normal mood, Normal affect Results - Vitals Vitals: Vital Signs - 24 hr 07/29/20 10:26 Temperature 36.5 C Heart Rate 72 Respiratory 15 Rate Blood Pressure 128/69 O2 Saturation 99 Oxygen O2 Source Room air Procedures - Suture/staple Removal (location) abdomen Suture/staple removal: # crystal (12), No complications. No: Infected, Dehiscence, Retained FB PD MEDICAL DECISION MAKING - ED course Complexity details: considered differential, d/w patient ED course: Patient did not seem to have any postop complications, and his wounds look great. I did feel it was reasonable to remove the crystal. I have advised patient to abide by any postoperative instructions he was given at time of discharge, and to contact his surgeon for any further concerns regarding his surgery. His wounds are stable and do not appear infected. We have discussed wound care from here on out. Departure - Departure Disposition: 01 Home, Self Care Clinical Impression: Removal of crystal, Encounter for postoperative wound check Condition: Stable Instructions: ED Wound Care Discharge Date/Time: 07/29/20 10:48
== END 2020-07-29 10:48 | disposition home or self-care (01) ==
LOC: ED 10:22
DX: Z48.02 Encounter for removal of sutures (principal); Z98.890 Other specified postprocedural states
CPT/HCPCS: 99281; 99282

== ENCOUNTER 2021-11-27 18:13 | Emergency (ER) | payer BC ==
[2021-11-27 18:20] VITALS: BP 150/87
--- NOTE | 2021-11-27 18:27 | ED Physician Documentation ---
PD HPI UPPER EXT INJURY - Stated complaint Stated Complaint: LEFT MIDDLE FINGER LAC - Chief complaint Chief Complaint: Laceration - History obtained from History obtained from: Patient - Additonal information Additional information: Left-handed gentleman with unknown tetanus status accidentally cut the tip of his left middle finger with a knife at home while working in the yard just prior to arrival. No other injuries. Review of Systems Constitutional: reports: Reviewed and negative Cardiac: reports: Reviewed and negative Respiratory: reports: Reviewed and negative PD PAST MEDICAL HISTORY - Past Medical History Cardiovascular: None Respiratory: Other Neuro: None Endocrine/Autoimmune: None GI: None : None HEENT: None Psych: None Musculoskeletal: None Derm: None - Past Surgical History Past Surgical History: No - Present Medications Home Medications: Ambulatory Orders Medication Instructions Recorded Confirmed lamoTRIgine [Lamictal] 10 mg PO DAILY 11/27/21 11/27/21 - Allergies Allergies/Adverse Reactions: Allergies Allergy/AdvReac Type Severity Reaction Status Date / Time No Known Drug Allergies Allergy Verified 11/27/21 18:20 - Social History Does the pt smoke?: No Smoking Status: Never smoker Does the pt drink ETOH?: No Does the pt have substance abuse?: No - Immunizations Immunizations are current?: No - POLST Patient has POLST: No PD ED PE NORMAL - Vitals Vital signs reviewed: Yes - General General: Alert and oriented X 3, No acute distress - Extremities Extremities: Other (On the pulp/tip there is a of the left middle finger there is a vertical laceration going up just into the nail, gapes slightly but not too deep. No limited range of motion or neurovascular compromise.) - Neuro Neuro: Alert and oriented X 3, Normal speech - Psych Psych: Normal mood, Normal affect Results - Vitals Vitals: Vital Signs - 24 hr 11/27/21 18:16 Temperature 36.0 C L Heart Rate 86 Respiratory 16 Rate Blood Pressure 150/87 H O2 Saturation 97 Oxygen O2 Source Room air Procedures - Laceration (location) Left middle finger Length in cm: 0.8 Wound type: Linear, Into subcut fat Neurovascular status: Sensory intact, Motor intact Tendon involvement: Tendon intact Anesthesia: Lidocaine 1% (Digital block with excellent anesthesia) Wound preparation: Irrigated copiously NS, Extensive cleaning/removal of particulate matter (He had quite a bit of dirt under the nail, this was removed with a surgical scrub brush and the nail fur cleaner) Skin layer closure: Nylon, Interrupted, Size #-0 - enter number (5-0), Sutures - enter # (2) Other: Patient tolerated well, No complications, Neurovascular intact, Tetanus booster given Departure - Departure Disposition: 01 Home, Self Care Clinical Impression: Finger laceration Qualifiers: Encounter type: initial encounter Finger: middle finger Damage to nail status: with damage Foreign body presence: without foreign body Laterality: left Qualified Code(s): S61.313A - Laceration without foreign body of left middle finger with damage to nail, initial encounter Condition: Good Record reviewed to determine appropriate education?: Yes Instructions: ED Laceration Hand Comments: Come back for any signs of infection which would include: Redness, swelling, drainage, increased pain, or fevers. You can wash it soap and water. Keep it covered and moist with bacitracin ointment which is available over the counter; avoid neosporin. Follow-up with your physician in about 14 days for suture removal.
[2021-11-27] MEDS ORDERED: TETANUS/DIPHTHERIA/PERTUSSIS 0.5 ML SYRINGE IM ONE (18:28)
== END 2021-11-27 18:48 | disposition home or self-care (01) ==
LOC: ED 18:13
DX: S61.313A Laceration without foreign body of left middle finger with damage to nail, initial encounter (principal); W26.0XXA Contact with knife, initial encounter; Y93.H9 Activity, other involving exterior property and land maintenance, building and construction; Y92.007 Garden or yard of unspecified non-institutional (private) residence as the place of occurrence of the external cause
CPT/HCPCS: 12001; 90471; 99283

== ENCOUNTER 2022-09-09 16:09 | Outpatient (CLI) | payer BC | END 2022-09-09 23:59 | disposition EMS.NT | LOC: EMS 16:09 | DX: S59.911A Unspecified injury of right forearm, initial encounter (principal); W18.39XA Other fall on same level, initial encounter; Y92.838 Other recreation area as the place of occurrence of the external cause ==

== ENCOUNTER 2022-09-09 17:27 | Emergency (ER) | payer BC ==
[2022-09-09 17:46] VITALS: BP 126/84
--- NOTE | 2022-09-09 18:01 | ED Physician Documentation ---
PD HPI UPPER EXT INJURY - Stated complaint Stated Complaint: RT FOREARM INJ - Chief complaint Chief Complaint: Trauma Ext - History obtained from History obtained from: Patient - History of Present Illness Location: Right, Forearm (he fell by tripping and landed right forearm onto edge of machinery, with local pain and swelling mid ulnar forearm.) Type of injury: Fall Timing - onset: Today Timing - details: Abrupt onset, Still present Improved by: Rest Worsened by: Moving, Palpating Associated symptoms: Swelling. No: Weakness, Numbness Contributing factors: No: Anticoagulated Similar symptoms before: Has not had sx before Review of Systems Skin: denies: Abrasion (s), Laceration (s) Neurologic: denies: Focal weakness, Numbness, Head injury PD PAST MEDICAL HISTORY - Past Medical History Cardiovascular: None Respiratory: Other Neuro: None Endocrine/Autoimmune: None GI: None : None HEENT: None Psych: None Musculoskeletal: None Derm: None - Past Surgical History Past Surgical History: No - Present Medications Home Medications: Ambulatory Orders Medication Instructions Recorded Confirmed No Known Home Medications 09/09/22 09/09/22 - Allergies Allergies/Adverse Reactions: Allergies Allergy/AdvReac Type Severity Reaction Status Date / Time No Known Drug Allergies Allergy Verified 09/09/22 17:45 - Social History Does the pt smoke?: No Smoking Status: Never smoker Does the pt drink ETOH?: No Does the pt have substance abuse?: No - Immunizations Immunizations are current?: No - POLST Patient has POLST: No PD ED PE NORMAL - Vitals Vital signs reviewed: Yes - General General: Alert and oriented X 3, No acute distress, Well developed/nourished - Derm Derm: Normal color, Warm and dry - Extremities Extremities: Other (right forearm with tender/swelling mid forearm ulnar aspect. Good ROM of elbow and wrist. ) - Neuro Neuro: No motor deficit, No sensory deficit Results - Vitals Vitals: Vital Signs - 24 hr 09/09/22 17:41 Temperature 36.6 C Heart Rate 78 Respiratory 16 Rate Blood Pressure 126/84 H O2 Saturation 94 Oxygen O2 Source Room air - Rads (name of study) forearm xray Relevant Findings:: Prelim report reviewed, EMP independent interpretation of test (no fractures) PD Medical Decision Making - ED course Complexity details: reviewed results, considered differential (fell onto right forearm with local pain and swelling. Got xray to eval for ulnar fracture. Xray normal. Patient did not feel needed sling. ), d/w patient Departure - Departure Disposition: 01 Home, Self Care Clinical Impression: Accidental fall, Forearm contusion Condition: Stable Record reviewed to determine appropriate education?: Yes Comments: Your x-ray is normal without any signs of fractures. You will still be having soreness in the muscle and you may even develop some bruising there over the next few days. Activity as tolerated. Consider some ice and rest for the area to reduce swelling this evening and tomorrow. Anti-inflammatory such as naproxen or ibuprofen can be useful 2 or 3 times daily for the next several days. Add Tylenol if needed. Forms: PCP List Discharge Date/Time: 09/09/22 18:31
--- NOTE | 2022-09-09 18:54 | XRAY Report ---
PROCEDURE: Forearm RT INDICATIONS: Trauma TECHNIQUE: 2 views of the forearm were acquired. COMPARISON: Trauma, pain FINDINGS: Bones: No fractures or dislocations. No suspicious bony lesions. Soft tissues: No suspicious soft tissue calcifications or masses. IMPRESSION: No acute bony abnormality. Reviewed by: Leroy Sofia MD on 09/09/2022 5:52 PM [facility] Approved by: Leroy Sofia MD on 09/09/2022 5:52 PM [facility] Station ID: [id number]
== END 2022-09-09 18:31 | disposition home or self-care (01) ==
LOC: ED 17:27
DX: S50.11XA Contusion of right forearm, initial encounter (principal); W01.198A Fall on same level from slipping, tripping and stumbling with subsequent striking against other object, initial encounter
CPT/HCPCS: 99283